=== PATIENT | male | born 1950 | race Caucasian/White ===

== ENCOUNTER 2017-09-30 22:14 | Emergency (ER) | payer OTHER ==
[~2017-09-30] VITALS: Ht 170.2 cm; Wt 86.2 kg
[~2017-09-30 22:14] MED LIST: ASPI-231 PO; ATEN100T53; CLOP75TA28 PO; LEVO50TA7 PO; LISI-646 PO; LISI-713; MECL12.554 PO; METO50TA7 PO; SIMV-8 PO; SPIR25TA89 PO
[2017-09-30 22:27] VITALS: BP 160/70
[2017-09-30] MEDS ORDERED: HYDROcodone-ACET 10/325MG TAB PO ONE (23:30)
[2017-09-30] MEDS ORDERED: TETANUS-DIPTH-ACEL PERTUSSIS 0.5ML SYRG IM ONE (23:30)
[2017-09-30] MEDS ORDERED: LIDOCAINE 1% HCL (LOCAL ANESTH.) INJ 20ML MDV ONE (23:42)
[2017-10-01] MEDS ORDERED: LIDOCAINE 1% HCL (LOCAL ANESTH.) INJ 20ML MDV ONE (00:33)
[2017-10-01] MEDS ORDERED: LIDOCAINE W/ EPINEPHRINE 1% 20ML VIAL SC ONE (00:45)
[2017-10-01] MEDS ORDERED: BACITRACIN TOP OINT 1 UD PKG TOP ONE (01:00)
== END 2017-10-01 03:07 | disposition home or self-care (01) ==
LOC: EDBD 22:14 → ER 22:14
DX: S81.812A Laceration without foreign body, left lower leg, initial encounter (principal); I25.10 Atherosclerotic heart disease of native coronary artery without angina pectoris; I10 Essential (primary) hypertension; I25.2 Old myocardial infarction; Z79.82 Long term (current) use of aspirin; Z86.73 Personal history of transient ischemic attack (TIA), and cerebral infarction without residual deficits; W54.0XXA Bitten by dog, initial encounter; Y93.89 Activity, other specified; Y92.89 Other specified places as the place of occurrence of the external cause; Y99.8 Other external cause status
CPT/HCPCS: 13121; 13122; 73590; 90471; 90715; 99285; J2001

== ENCOUNTER 2017-10-14 08:40 | Emergency (ER) | payer OTHER ==
[~2017-10-14] VITALS: Ht 170.2 cm; Wt 86.2 kg
[2017-10-14 09:03] VITALS: BP 121/83
== END 2017-10-14 10:37 | disposition home or self-care (01) ==
LOC: ER 08:40
DX: S81.812D Laceration without foreign body, left lower leg, subsequent encounter (principal); X58.XXXD Exposure to other specified factors, subsequent encounter; I25.10 Atherosclerotic heart disease of native coronary artery without angina pectoris; I10 Essential (primary) hypertension; I25.2 Old myocardial infarction; Z86.73 Personal history of transient ischemic attack (TIA), and cerebral infarction without residual deficits

== ENCOUNTER 2020-08-10 12:14 | Emergency (ER) | payer OTHER ==
[~2020-08-10] VITALS: Ht 170.2 cm; Wt 86.2 kg
[~2020-08-10 12:14] MED LIST changes: -ATEN100T53; +HYDR-4833 PO; -LISI-713; -MECL12.554 PO; +METO-6 PO; -METO50TA7 PO; -SPIR25TA89 PO
[2020-08-10 12:21] VITALS: BP 115/75
[2020-08-10] MEDS ORDERED: KETOROLAC TROMETH 30 MG/ML 1ML VIAL IM ONE (14:30)
[2020-08-10] MEDS ORDERED: methylPREDNISolone SOD SUCC 125 MG/2 ML VL IM ONE (14:30)
[2020-08-10 15:23] LABS: Basophils # (auto) 0.1 10 ^3/uL (0-0.2); Basophils % (auto) 0.4 % (0.0-2.0); Eosinophils # (auto) 0.1 10 ^3/uL (0-0.8); Eosinophils % (auto) 0.8 % (0.0-7.0); Hematocrit 45.7 % (41.0-53.0); Hemoglobin 15.5 g/dL (13.5-17.5); Lymphocytes # (auto) 1.3 10 ^3/uL (0.4-5.4); Lymphocytes % (auto) 10.5 % (10.0-50.0); Mean Corpuscular Hemoglobin 30.3 pg (28.0-32.0); Mean Corpuscular Hgb Conc. 33.9 g/dL (32.0-36.0); Mean Corpuscular Volume 89.4 fL (80.0-100.0); Monocytes # (auto) 1.2 10 ^3/uL (0-1.3); Monocytes % (auto) 9.1 % (0.0-12.0); Neutrophils # (auto) 10.1 10 ^3/uL (1.6-8.6); Neutrophils % (auto) 79.2 % (37.0-80.0); Nucleated Red Blood Cells % 0.1 %; Platelet Count (auto) 321 10^3/uL (140-450); Red Blood Cells 5.12 10^6/uL (4.5-5.90); Red Cell Distribution Width 13.4 % (11.8-14.3); White Blood Cell 12.7 10^3/uL (4.4-10.8)
[2020-08-10 15:33] LABS: Potassium 4.5 mmol/L (3.5-5.1)
[2020-08-10 15:35] LABS: BUN/Creatinine Ratio 16.5; Uric Acid 8.1 mg/dL (3.5-7.2)
== END 2020-08-10 16:18 | disposition home or self-care (01) ==
LOC: ER 12:14
DX: M10.9 Gout, unspecified (principal); E78.5 Hyperlipidemia, unspecified; I11.0 Hypertensive heart disease with heart failure; I50.9 Heart failure, unspecified; I25.10 Atherosclerotic heart disease of native coronary artery without angina pectoris
CPT/HCPCS: 36415; 80048; 84550; 85025; 96372; 99283; J1885; J2930

== ENCOUNTER 2022-08-06 19:30 | Inpatient (IN) | payer OTHER ==
[~2022-08-06] VITALS: Ht 182.9 cm; Wt 89.9 kg
[~2022-08-06 19:30] MED LIST changes: -ASPI-231 PO; +ASPI1TAB20 PO; -LISI-646 PO; +LISI20TA28 PO
[2022-08-06 20:43] LABS: Basophils # (auto) 0 10 ^3/uL (0-0.2); Basophils % (auto) 0.5 % (0.0-2.0); Eosinophils # (auto) 0 10 ^3/uL (0-0.8); Eosinophils % (auto) 0.5 % (0.0-7.0); Hematocrit 47.2 % (41.0-53.0); Lymphocytes # (auto) 0.4 10 ^3/uL (0.4-5.4); Lymphocytes % (auto) 5.5 % (10.0-50.0); Mean Corpuscular Hemoglobin 29.6 pg (28.0-32.0); Mean Corpuscular Hgb Conc. 33.8 g/dL (32.0-36.0); Mean Corpuscular Volume 87.4 fL (80.0-100.0); Monocytes # (auto) 0.9 10 ^3/uL (0-1.3); Monocytes % (auto) 11.9 % (0.0-12.0); Neutrophils # (auto) 5.8 10 ^3/uL (1.6-8.6); Neutrophils % (auto) 81.6 % (37.0-80.0); Nucleated Red Blood Cells % 0.1 %; Red Cell Distribution Width 13.6 % (11.8-14.3); White Blood Cell 7.2 10^3/uL (4.4-10.8)
[2022-08-06 21:10] LABS: INR 1.2 (0.9-1.15); Partial Thromboplastin Time 30.6 sec (24.6-33.4)
[2022-08-06 21:13] LABS: Albumin 3.8 g/dL (3.4-5.0); BUN/Creatinine Ratio 10.5; Bilirubin, Total 0.7 mg/dL (0.2-1.0); Calcium 9.3 mg/dL (8.5-10.1); Potassium 3.8 mmol/L (3.5-5.1); Total Protein 7.5 g/dL (6.4-8.2)
[2022-08-06] MEDS ORDERED: ACETAMINOPHEN 500 MG TAB PO ONE (21:15)
[2022-08-06 22:04] LABS: Urine Bacteria NONE SEEN /hpf (None Seen); Urine Blood TRACE /uL (Negative); Urine Specific Gravity 1.023 (1.001-1.035); Urine WBC 1 /hpf (0 - 3)
[2022-08-06 22:22] LABS: Alcohol, Urine < 3.0 mg/dL (0-10); Amphetamine Screen, Urine NEGATIVE (NEGATIVE); Barbiturate Scree,Urine NEGATIVE (NEGATIVE); Benzodiazephine Screen, Urine NEGATIVE (NEGATIVE); Cannabinoid Screen, Urine NEGATIVE (NEGATIVE); Cocaine Screen, Urine NEGATIVE (NEGATIVE); Opiate Scree,Urine NEGATIVE (NEGATIVE); Phencyclidine Screen, Urine NEGATIVE (NEGATIVE)
[2022-08-07] MEDS ORDERED: AZITHROMYCIN 500MG/ 250ML 250 ML IV ONE (01:45)
[2022-08-07] MEDS ORDERED: MORPHINE SULFATE INJ 2 MG/ml SYRG IV PRN (12:00)
[2022-08-07] MEDS ORDERED: DEXTROSE (50%) 50ML SYRG IV PRN (12:00)
[2022-08-07] MEDS ORDERED: NITROGLYCERIN 0.4 MG SL TAB SL PRN (12:00)
[2022-08-07 13:10] LABS: Magnesium 2.1 mg/dL (1.6-2.6)
[2022-08-07 13:12] LABS: Phosphorus 2.8 mg/dL (2.5-4.90)
[2022-08-07] MEDS: InsuLIN REG 1unit/0.01ml Soln (100units/ml) SC SCH ×2 (13:12→18:00)
[2022-08-07] MEDS: ACCU-CHEK COMFORT CURVE STRIP VI SCH ×2 (13:13→18:11)
[2022-08-07 17:10] VITALS: BP 143/87
[2022-08-07] MEDS ORDERED: hydrALAZINE HCL 20 MG/ML VL IV PRN (17:15)
[2022-08-07] MEDS: SODIUM CHLORIDE 0.9% 1,000 ML IV SCH (17:15)
[2022-08-07] MEDS ORDERED: IOHEXOL 350 MG/ML 100ML IJ ONE (17:17)
[2022-08-07 18:02] LABS: Basophils # (auto) 0 10 ^3/uL (0-0.2); Basophils % (auto) 0.9 % (0.0-2.0); Eosinophils # (auto) 0 10 ^3/uL (0-0.8); Eosinophils % (auto) 0.6 % (0.0-7.0); Hematocrit 49.3 % (41.0-53.0); Hemoglobin 16.7 g/dL (13.5-17.5); Lymphocytes # (auto) 1.4 10 ^3/uL (0.4-5.4); Lymphocytes % (auto) 27.9 % (10.0-50.0); Mean Corpuscular Hemoglobin 29.8 pg (28.0-32.0); Mean Corpuscular Hgb Conc. 33.8 g/dL (32.0-36.0); Mean Corpuscular Volume 88.1 fL (80.0-100.0); Monocytes # (auto) 0.8 10 ^3/uL (0-1.3); Monocytes % (auto) 16.6 % (0.0-12.0); Neutrophils # (auto) 2.7 10 ^3/uL (1.6-8.6); Nucleated Red Blood Cells % 0.5 %; Red Cell Distribution Width 13.6 % (11.8-14.3)
[2022-08-07 18:19] LABS: BUN/Creatinine Ratio 13.3; Calcium 9.4 mg/dL (8.5-10.1); Potassium 3.7 mmol/L (3.5-5.1)
[2022-08-07] MEDS: ATORVASTATIN 20 MG TAB PO SCH (21:36)
[2022-08-07 22:00] VITALS: BP 128/65
[2022-08-08] MEDS: ACCU-CHEK COMFORT CURVE STRIP VI SCH ×4 (00:51→16:37)
[2022-08-08] MEDS ORDERED: SPIR25TA8 PO (02:19)
[2022-08-08 05:00] VITALS: BP 128/78
[2022-08-08 05:07] LABS: RPR Non Reactive (Non Reactive)
[2022-08-08] MEDS: InsuLIN REG 1unit/0.01ml Soln (100units/ml) SC SCH ×4 (05:08→16:37)
[2022-08-08] MEDS: SODIUM CHLORIDE 0.9% 1,000 ML IV SCH (05:08)
[2022-08-08 05:23] LABS: Basophils # (auto) 0.1 10 ^3/uL (0-0.2); Basophils % (auto) 1.3 % (0.0-2.0); Eosinophils # (auto) 0.1 10 ^3/uL (0-0.8); Eosinophils % (auto) 2.5 % (0.0-7.0); Hemoglobin 16.5 g/dL (13.5-17.5); Lymphocytes # (auto) 1.6 10 ^3/uL (0.4-5.4); Lymphocytes % (auto) 39.3 % (10.0-50.0); Mean Corpuscular Hemoglobin 29.6 pg (28.0-32.0); Mean Corpuscular Hgb Conc. 33.7 g/dL (32.0-36.0); Mean Corpuscular Volume 87.7 fL (80.0-100.0); Monocytes # (auto) 0.6 10 ^3/uL (0-1.3); Monocytes % (auto) 14.7 % (0.0-12.0); Neutrophils # (auto) 1.7 10 ^3/uL (1.6-8.6); Neutrophils % (auto) 42.2 % (37.0-80.0); Nucleated Red Blood Cells % 0.2 %; Red Blood Cells 5.58 10^6/uL (4.5-5.90); Red Cell Distribution Width 13.9 % (11.8-14.3); White Blood Cell 4.1 10^3/uL (4.4-10.8)
[2022-08-08 05:25] LABS: Potassium 3.8 mmol/L (3.5-5.1)
[2022-08-08 05:27] LABS: BUN/Creatinine Ratio 16.7; Calcium 9.5 mg/dL (8.5-10.1)
[2022-08-08 09:00] VITALS: BP 122/75
[2022-08-08] MEDS ORDERED: LISINOPRIL 20 MG TAB PO SCH (10:00)
[2022-08-08] MEDS ORDERED: CLOPIDOGREL BISULFATE 75 MG TAB PO SCH (10:00)
[2022-08-08] MEDS ORDERED: LEVOTHYROXINE SODIUM 50 MCG TAB PO SCH (10:00)
[2022-08-08] MEDS ORDERED: ASPirin 81 mg TAB PO SCH (10:00)
[2022-08-08] MEDS ORDERED: METOPROLOL SUCCINATE XL 50 MG TAB PO SCH (10:00)
[2022-08-08 12:30] VITALS: BP 134/97
[2022-08-08 13:00] VITALS: BP 122/75
[2022-08-08 17:00] VITALS: BP 157/85
[2022-08-08] MEDS ORDERED: DOX100T PO (17:26)
[2022-08-08] MEDS: DOXYCYCLINE 100 MG TAB/CAP PO SCH ×2 (18:11→21:14)
[2022-08-08 19:35] VITALS: BP 122/75
[2022-08-08] MEDS: ATORVASTATIN 20 MG TAB PO SCH (21:14)
== END 2022-08-08 21:15 | disposition home or self-care (01) | DRG 177 ==
LOC: EDBD 19:30 → ER 19:31 → TELE 08-07 11:54 → TELE-CENTR 08-07 16:28
PROVIDERS: ADMIT Nurse Practitioner Family; ATTEND Internal Medicine
DX: U07.1 COVID-19 (principal); G92.9 Unspecified toxic encephalopathy; J98.11 Atelectasis; E03.9 Hypothyroidism, unspecified; E11.9 Type 2 diabetes mellitus without complications; E78.5 Hyperlipidemia, unspecified; Z20.822 Contact with and (suspected) exposure to COVID-19; I11.0 Hypertensive heart disease with heart failure; I25.10 Atherosclerotic heart disease of native coronary artery without angina pectoris; I25.5 Ischemic cardiomyopathy; I48.91 Unspecified atrial fibrillation; I50.9 Heart failure, unspecified; Z79.82 Long term (current) use of aspirin; I25.2 Old myocardial infarction; Z82.0 Family history of epilepsy and other diseases of the nervous system; Z82.3 Family history of stroke; Z86.73 Personal history of transient ischemic attack (TIA), and cerebral infarction without residual deficits; Z95.810 Presence of automatic (implantable) cardiac defibrillator; Z88.0 Allergy status to penicillin; R53.81 Other malaise; Z79.84 Long term (current) use of oral hypoglycemic drugs
CPT/HCPCS: 36415; 70450; 71045; 71275; 80048; 80053; 80307; 80320; 81001; 82010; 82140; 82962; 83036; 83735; 83880; 84100; 84439; 84443; 84481; 84484; 85025; 85379; 85610; 85730; 86592; 87040; 87426; 87804; 92610; 93005; 93306; 93886; 93970; 96365; 97163; 99291; G0378

== ENCOUNTER 2025-02-20 21:29 | Inpatient (IN) | payer OTHER ==
[~2025-02-20] VITALS: Ht 170.2 cm; Wt 87.0 kg
[~2025-02-20 21:29] MED LIST changes: +DOX100T PO; -LISI20TA28 PO; +LISI20TA56 PO; -SIMV-8 PO; +SIMV20TA20 PO; +SPIR25TA8 PO
[2025-02-20 22:09] VITALS: PULSE 80; RESP 19; O2SAT 91
[2025-02-20] MEDS: methylPREDNISolone SOD SUCC 125 MG/2 ML VL IV ONE (22:22)
[2025-02-20] MEDS: ALBUTEROL SULF 2.5 MG/0.5ML(0.5%) NEB SOLN NEB ONE (22:37)
[2025-02-20] MEDS: IPRATROPIUM BROM 0.5 MG/2.5ML INH SOL NEB ONE (22:37)
--- NOTE | 2025-02-20 22:49 | ED.PDOC ---
History of Present Illness HPI Comments 74 y/o M is BIBA for 1x day history of throat pain and shortness of breath. Patient reports on gradual onset of symptoms, that began, initially, with throat pain. Patient has a history of angina, CAD, CHF, CVA, DM, HLD, HTN, AL s/p PTCA and pacemaker, thyroid, TIA. He states on his grandson being sick, currently, with same throat pain symptom. Patient denies having any chest pain, cough, congestion, fever, chills, or further associated symptoms. Per EMS report, patient was found with low O2 saturation on scene and was placed on oxygen en route. Chief Complaint: Shortness of Breath Comments 74-year-old male with history of hypertension, dyslipidemia, CHF, CVA, AL status post PTCA and pacemaker insertion for bradycardia, brought in by EMS from home complaining of shortness of breath. Patient states he developed a sore throat yesterday, then today awakened with cough and difficulty breathing. He reports his grandson as a sick contact with similar symptoms. He denies any fever, chest pain, nausea, vomiting, diaphoresis or edema. Time Seen by MD: 22:15 Primary Care Provider: NATALY Reviewed Notes: Nurses Notes, Sports Team Marketing Intern Notes, Medications, Allergies Allergies: Coded Allergies: Penicillins (Verified Allergy, Unknown, 08/10/20) Home Meds Active Scripts Doxycycline Monohydrate (Doxycycline Monohydrate) 100 Mg Tab, 100 MG PO Q12HR, #14 TAB Prov:MEG MENDOZA MD 08/08/22 Reported Medications Spironolactone (Spironolactone) 25 Mg Tab, 1 TAB PO DAILY, #90 TAB 1 Refill 08/08/22 Hydrocodone-Acetaminophen ([place] 5/325MG) 1 Tab Tb, 1 TAB PO Q6HP PRN, #12 04/11/18 Aspirin (Aspir-81) 81 Mg Tab, 1 TAB PO DAILY, #30 TAB 5 Refills 08/29/16 Levothyroxine Sodium (Levothyroxine Sodium) 50 Mcg Tab, 50 MCG PO, TAB 08/29/16 Metoprolol Succinate (Toprol Xl) 50 Mg Tab, 1 TAB PO DAILY, #30 TAB 5 Refills 08/29/16 Clopidogrel Bisulfate (Plavix) 75 Mg Tab, 75 MG PO, TAB 12/8/16 Simvastatin (Simvastatin) 20 Mg Tab, 20 MG PO DAILY for 30 Days 08/29/16 Lisinopril (Lisinopril) 20 Mg Tab, 20 MG PO DAILY for 30 Days, MG 08/29/16 Information Source: Patient Mode of Arrival: EMS Severity: Moderate Timing: Days Duration: Since onset Prehospital treatment: 12 Lead EKG, Accucheck, Alteration Manager, Oxygen Past Medical History PAST MEDICAL HISTORY: Angina, CAD, CHF, CVA, High Lipids, HTN, AL, Thyroid, TIA Surgical History: Pacemaker, PTCA Family History Family History: No family hx of Heart sohan, No family hx of HTN Social History Smoker: Non-Smoker Alcohol: Denies ETOH Use Drugs: Denies Drug Use Lives In: Home All Other Systems: Reviewed and Negative (Comprehensive systems review obtained and negative except for what is stated in the HPI.) Physical Exam General Appearance: No Apparent Distress HEENT: Other (Pupils and face symmetric. Moist mucous membranes. Mild pharyngeal and tonsillar erythema and edema. No exudate or uvular deviation.) Neck: Full Range of Motion, Normal Inspection Respiratory: Crackles, Decreased Breath Sounds, No Accessory Muscle Use, No Respiratory Distress, Rales Cardiovascular: No Edema, No JVD, Regular Rate/Rhythm Breast Exam: Deferred Gastrointestinal: Non Tender, Soft Genitalia: Deferred Pelvic: Deferred Rectal: Deferred Extremities: Normal inspection, Normal range of motion, Non-tender, No pedal edema Neurologic: Alert (Oriented x4), Normal Affect, Normal Mood, Other (Moves all extremities. Light touch sensation grossly intact all extremities.) Cerebellar Function: NOT DONE Reflexes: NOT DONE Skin: Dry, Normal Color, Rash (Scattered patchy erythematous rash on lower extremities), Warm Lymphatic: NOT DONE Was a procedure done? Was a procedure done?: No EKG EKG : Comments Sinus rhythm, rate 85, normal IA interval, QRS prolonged at 137, QTC prolonged at 475, left axis deviation, old inferior infarct, lateral T-wave inversion, occ asional PVCs Differential Dx Considerations may include: CHF, bronchitis, asthma/COPD, pneumonia, sepsis, viral syndrome, arrhythmia, AL, among others X-Ray, Labs, Meds, VS Vital Signs Date Time Temp Pulse Resp B/P (MAP) Pulse Ox O2 Delivery O2 Flow Rate FiO2 02/21/25 01:00 73 19 137/72 (93) 94 02/21/25 00:00 73 18 132/79 (96) 02/20/25 23:00 80 17 127/75 (92) 02/20/25 22:33 18 94 Nasal Cannula* 4 36 02/20/25 22:09 80 19 91 Room Air* 0 21 02/20/25 22:08 98.8 80 19 137/80 (99) 91 98.8 02/20/25 21:40 85 02/20/25 21:29 98.5 77 20 151/98 (115) 95 98.5 Lab Test 02/21/25 00:29 02/20/25 23:44 02/20/25 22:39 02/20/25 22:31 Range/Units Lactic Acid Level 3.0 *H 2.8 *H 0.4-2.0 mmol/L Troponin I High Sensitivity 12 11 </=54 ng/L White Blood Count 12.8 H 4.4-10.8 10^3/uL Red Blood Count 5.30 4.5-5.90 10^6/uL Hemoglobin 15.9 13.5-17.5 g/dL Hematocrit 47.6 41.0-53.0 % Mean Corpuscular Volume 89.9 80.0-100.0 fL Mean Corpuscular Hemoglobin 30.1 28.0-32.0 pg Mean Corpuscular Hemoglobin Concent 33.4 32.0-36.0 g/dL Red Cell Distribution Width 14.2 11.8-14.3 % Platelet Count 240 140-450 10^3/uL Mean Platelet Volume 8.0 6.9-10.8 fL Neutrophils (%) (Auto) 85.2 H 37.0-80.0 % Lymphocytes (%) (Auto) 8.7 L 10.0-50.0 % Monocytes (%) (Auto) 4.9 0.0-12.0 % Eosinophils (%) (Auto) 0.9 0.0-7.0 % Basophils (%) (Auto) 0.3 0.0-2.0 % Neutrophils # (Auto) 10.9 H 1.6-8.6 10 ^3/uL Lymphocytes # (Auto) 1.1 0.4-5.4 10 ^3/uL Monocytes # (Auto) 0.6 0-1.3 10 ^3/uL Eosinophils # (Auto) 0.1 0-0.8 10 ^3/uL Basophils # (Auto) 0 0-0.2 10 ^3/uL Nucleated Red Blood Cells 0.1 % D-Dimer, Quantitative 0.52 H 0.0-0.49 mg/L FEU Sodium Level 140 136-145 mmol/L Potassium Level 4.0 3.5-5.1 mmol/L Chloride Level 107 98-107 mmol/L Carbon Dioxide Level 23 20-31 mmol/L Anion Gap 10 5-15 Blood Urea Nitrogen 13 9-23 mg/dL Creatinine 0.92 0.700-1.30 mg/dL Glomerular Filtration Rate Calc 87 >90 mL/min BUN/Creatinine Ratio 14.1 10.0-20.0 Serum Glucose 138 H 74-106 mg/dL Calcium Level 9.6 8.7-10.4 mg/dL B-Type Natriuretic Peptide 404.55 0-100 pg/mL Influenza Type A Antigen Negative Negative Influenza Type B Antigen Negative Negative SARS-CoV-2 Antigen (Rapid) Negative NEGATIVE Current Medications Medications (Trade) Dose Ordered Sig/Eric Route Start Time Stop Time Status Last Admin Methylprednisolone Sodium Succinate (Solu Medrol) 125 mg ONCE ONCE IV 02/20/25 22:30 02/20/25 22:31 DC 02/20/25 22:22 Vancomycin HCl 200 ml @ 200 mls/hr ONCE ONCE IV 02/21/25 01:00 02/21/25 01:59 DC 02/21/25 01:21 Cefepime HCl 50 ml @ 12.5 mls/hr ONCE ONCE IV 02/21/25 01:45 02/21/25 05:44 02/21/25 02:55 Sodium Chloride 250 ml @ 250 mls/hr Q1H ONCE IV 02/21/25 02:30 02/21/25 03:29 02/21/25 02:[address] [address] Ph: [phone] DIAGNOSTIC IMAGING Diagnostic Imaging Report : [id number] Signed PATIENT: REHAN DE LEON ACCT: [id number] UNIT: [id number] : 1950 LOC: ER ROOM / BED: / AGE / SEX: 74 / M ADM STATUS: REG ER SERVICE [id number] ORDERING PHYSICIAN: CARLOS ENRIQUE SUTTON MD PROCEDURE(s): CXRP - CHEST PORTABLE REASON: sob ORDER NUMBER(s): [id number], ACCESSION NUMBER(s): [id number] CHEST RADIOGRAPH Indication: sob Technique: Single frontal view of the chest was obtained COMPARISON: CHEST PORTABLE on DOS: 08/06/22, CXRP on DOS: 08/06/22, EKG on DOS: 08/06/22 FINDINGS: Lines and Tubes: None. Left anterior chest wall dual lead cardiac pacing device noted. Lungs: Clear Pleura: No effusion. No pneumothorax. Cardiomediastinal contours: Unremarkable Bones: Unremarkable IMPRESSION: 1. No acute disease. ATED BY: TRENT RAM MD DICTATED DATE/TIME: 02/20/252314 SIGNED BY: TRENT RAM MD SIGNED DATE/TIME: 02/20/252314 CC: X-Ray, Labs, Meds, VS Comment 74-year-old male with a history of hypertension, CHF, CAD, mi, dyslipidemia and CVA presenting with URI symptoms and shortness of breath Vitals remarkable for oxygen saturation 91% on room air-hypoxic Exam remarkable for pharyngeal erythema and edema, diminished breath sounds and scattered rales Rhythm strip independently interpreted by me: Sinus rhythm, rate 85, occasional PVCs Chest x-ray IMPRESSION: 1. No acute disease. CBC remarkable for WBC 12.8, metabolic panel unremarkable, two serial troponins negative, BNP 404.55, influenza and COVID negative, lactate 2.8, 3.0 on repeat Patient treated with the following in the ED: Albuterol 5 mg/Ativan 0.5 mg nebulized, Solu-Medrol 125 mg IV, cefepime 1 g IV, vancomycin 1 g IV, Lasix 40 mg IV On re-evaluation, patient is not in respiratory distress and saturating 94% on 4 L nasal cannula. Other vitals are stable. Plan is to admit the patient for diuresis, IV antibiotics and respiratory support as needed. 30 cc/kilogram sepsis fluid bolus was not administered due to the patient's history of CHF and rales on exam. Aggressive fluid administration could cause harm. Case discussed with BENI Vanegas, who will admit the patient. Time of 1ST Reevaluation: 22:45 Reevaluation 1ST: Unchanged Time of 2ND Reevaluation: 23:45 Reevaluation 2ND: Improved Patient Education/Counseling: Diagnosis, Treatment, Other (need for admission ) Family Education/Counseling: No Family Present Sepsis Sepsis Reasesment Focused Exam Sepsis focused exam: focus exam completed, time: (2344) Orders: Laboratory Tests 02/20/25 22:39: Lactic Acid Level 2.8 02/21/25 00:29: Lactic Acid Level 3.0 Sepsis Date: Feb 21, 2025 Time recognized/suspected: 00:30 Recent Procedure: No On Antibiotic Therapy: No Respiratory Rate >20: No Heart Rate >90: No Temp<36 C (96.8 F) or >38.3 C: No SBP <90 or MAP <65 mmHG: No New Acute Mental Status Change: No Is the patient on CPAP, BIPAP,: No IV fluid given: No Departure 1 Departure Time of Disposition: 23:45 Impression: Primary Impression: Pharyngitis Qualified Codes: J02.9 - Acute pharyngitis, unspecified Additional Impressions: Bronchitis Acute respiratory failure Qualified Codes: J96.01 - Acute respiratory failure with hypoxia CHF exacerbation Qualified Codes: I50.9 - Heart failure, unspecified Sepsis Qualified Codes: A41.9 - Sepsis, unspecified organism Disposition: 09 ADMITTED INPATIENT Admit to: Tele Condition: Guarded Critical Care Note Critical Care Time?: Yes (45 min-critical care time only) Critical care comment: Critical care time including multiple bedside re-evaluations, review of lab and imaging studies, and discussion of the case with the admitting provider. Patient is high-risk for respiratory and/or hemodynamic decompensation. Stability Stability form required: No Heart Score Heart Score: Heart Score Response (Comments) Value History N/A 0 EKG N/A 0 Age N/A 0 Risk Factors N/A 0 Troponin N/A 0 Total 0 I personally scribed for CARLOS ENRIQUE SUTTON MD ([email or web address]) on 02/20/25 at 22:48. Electronically submitted by Stanley Yanes ([email or web address]). I personally scribed for CARLOS ENRIQUE SUTTON MD ([email or web address]) on 02/20/25 at 23:23. Electronically submitted by Stanley Yanes ([email or web address]). I personally scribed for CARLOS ENRIQUE SUTTON MD ([email or web address]) on 02/21/25 at 00:05. Electronically submitted by Stanley Yanes ([email or web address]). CARLOS ENRIQUE SUTTON MD Feb 20, 2025 22:48
[2025-02-20 23:06] LABS: Basophils # (auto) 0 10 ^3/uL (0-0.2); Basophils % (auto) 0.3 % (0.0-2.0); Eosinophils # (auto) 0.1 10 ^3/uL (0-0.8); Eosinophils % (auto) 0.9 % (0.0-7.0); Hematocrit 47.6 % (41.0-53.0); Hemoglobin 15.9 g/dL (13.5-17.5); Lymphocytes # (auto) 1.1 10 ^3/uL (0.4-5.4); Lymphocytes % (auto) 8.7 % (10.0-50.0); Mean Corpuscular Hemoglobin 30.1 pg (28.0-32.0); Mean Corpuscular Hgb Conc. 33.4 g/dL (32.0-36.0); Mean Corpuscular Volume 89.9 fL (80.0-100.0); Monocytes # (auto) 0.6 10 ^3/uL (0-1.3); Monocytes % (auto) 4.9 % (0.0-12.0); Neutrophils # (auto) 10.9 10 ^3/uL (1.6-8.6); Neutrophils % (auto) 85.2 % (37.0-80.0); Nucleated Red Blood Cells % 0.1 %; Platelet Count (auto) 240 10^3/uL (140-450); Red Cell Distribution Width 14.2 % (11.8-14.3); White Blood Cell 12.8 10^3/uL (4.4-10.8)
[2025-02-20 23:13] LABS: Anion Gap 10 (5-15); Carbon Dioxide 23 mmol/L (20-31); Chloride 107 mmol/L (98-107); Sodium 140 mmol/L (136-145)
[2025-02-20 23:14] LABS: Calcium 9.6 mg/dL (8.7-10.4)
[2025-02-20 23:15] LABS: COVID19 ANTIGEN SOFIA FIA NEGATIVE (NEGATIVE)
[2025-02-20 23:16] LABS: Rapid Influenza A Negative (Negative); Rapid Influenza B Negative (Negative)
--- NOTE | 2025-02-20 23:17 | DVH ---
CHEST RADIOGRAPH Indication: sob Technique: Single frontal view of the chest was obtained COMPARISON: CHEST PORTABLE on DOS: 08/06/22, CXRP on DOS: 08/06/22, EKG on DOS: 08/06/22 FINDINGS: Lines and Tubes: None. Left anterior chest wall dual lead cardiac pacing device noted. Lungs: Clear Pleura: No effusion. No pneumothorax. Cardiomediastinal contours: Unremarkable Bones: Unremarkable IMPRESSION: 1. No acute disease.
[2025-02-20 23:19] LABS: BUN/Creatinine Ratio 14.1 (10.0-20.0); Blood Urea Nitrogen 13 mg/dL (9-23)
[2025-02-20 23:21] LABS: Glucose 138 mg/dL (74-106)
[2025-02-20 23:25] LABS: Lactic Acid w/Reflex 2.8 mmol/L (0.4-2.0)
[2025-02-21] VITALS (13 sets, daily range): BP systolic 125–154; BP diastolic 65–86; PULSE 58–87; RESP 16–19; TEMP 97.3–98.5; O2SAT 92–97
[2025-02-21] MEDS ORDERED: PIPERACILLIN-TAZO 4.5GM 100 ML IV ONE (01:00)
[2025-02-21] MEDS: VANCOMYCIN 1GM/200ML PM 200 ML IV ONE (01:21)
[2025-02-21] MEDS ORDERED: IPRATROPIUM BROM 0.5 MG/2.5ML INH SOL NEB PRN (02:30)
[2025-02-21] MEDS ORDERED: ONDANSETRON HCL 4 MG/2 ML VIAL IV PRN (02:30)
[2025-02-21] MEDS ORDERED: ACETAMINOPHEN 325 MG TAB PO PRN (02:30)
[2025-02-21] MEDS ORDERED: MORPHINE SULFATE INJ 2 MG/ml SYRG IV PRN (02:45)
[2025-02-21] MEDS ORDERED: NITROGLYCERIN 0.4 MG SL TAB SL PRN (02:45)
[2025-02-21] MEDS: CEFEPIME 1GM/ 50ML 50 ML IV ONE (02:55)
[2025-02-21] MEDS: SODIUM CHLORIDE 0.9% 250 ML IV ONE (02:55)
--- NOTE | 2025-02-21 02:56 | DVHHP2 ---
Admitting Diagnosis: acute respiratory failure, acute chf exacerbation History of Present Illness History Source: Patient Exam Limitations: No limitations HPI Mr. Kolton Rivero is a 74 year old male with a history of angina, CAD, CHF, CVA, DM, HLD, HTN, NM s/p PTCA and pacemaker, thyroid TIA who presents with a chief complaint of throat pain and shortness of breath. Patient reports on gradual onset of symptoms, that began, initially, with throat pain. Patient reports dyspnea at rest denies chest pain, dizziness, fevers, chills. Patient with a d dimer of 0.52, BNP 404, lactate levels 2.8, 3.0. Chest x ray per radiologists with no acute disease. Patient denies any home oxygen use. Patient admitted for further evaluation and treatment. Home Meds Active Scripts Doxycycline Monohydrate (Doxycycline Monohydrate) 100 Mg Tab, 100 MG PO Q12HR, #14 TAB Prov:MEG MENDOZA MD 08/08/22 Reported Medications Spironolactone (Spironolactone) 25 Mg Tab, 1 TAB PO DAILY, #90 TAB 1 Refill 08/08/22 Hydrocodone-Acetaminophen ([place] 5/325MG) 1 Tab Tb, 1 TAB PO Q6HP PRN, #12 04/11/18 Aspirin (Aspir-81) 81 Mg Tab, 1 TAB PO DAILY, #30 TAB 5 Refills 08/29/16 Levothyroxine Sodium (Levothyroxine Sodium) 50 Mcg Tab, 50 MCG PO, TAB 08/29/16 Metoprolol Succinate (Toprol Xl) 50 Mg Tab, 1 TAB PO DAILY, #30 TAB 5 Refills 08/29/16 Clopidogrel Bisulfate (Plavix) 75 Mg Tab, 75 MG PO, TAB 08/29/16 Simvastatin (Simvastatin) 20 Mg Tab, 20 MG PO DAILY for 30 Days 08/29/16 Lisinopril (Lisinopril) 20 Mg Tab, 20 MG PO DAILY for 30 Days, MG 08/29/16 Past Medical History Cardiac: CAD, CHF, HTN, NM, Hyperlipidemia Pulmonary: No pertinent Hx Central Nervous System: CVA, TIA GI: No pertinent Hx Hemotology/Oncology: No pertinent Hx Hepatobiliary: No pertinent Hx Psychiatric: No pertinent Hx Musculoskeletal: No pertinent Hx Rheumotologic: No pertinent Hx Infectious Disease: No peritnent Hx ENT: No pertinent Hx Renal/: No pertinent Hx Endocrine: No pertinent Hx Dermatology: No pertinent Hx Past Surgical History: Pacemaker, PTCA Patient Family History: Cancer G8 FATHER Seizure disorder (situation) G8 SISTER Stroke G8 MOTHER Sturge-Lewis syndrome G8 SISTER Smoker: No Hx (Negative) Alocohol: None Drugs: None Lives with: With family Domestic Violence: Neg Review of Systems Constitutional: No symptom reported Ears, Nose, & Throat: No symptom reported Eyes: No symptom reported Pulmonary/Respiratory: Dyspnea, Other (thorat pain) Cardiovascular: No symptom reported Gastrointestinal: No symptom reported Genitourinary: No symptom reported Musculoskeletal: No symptom reported Skin: No symptom reported Psychiatric: No symptom reported Endocrine: No symptom reported Hemotologic/Lymphatic: No symptom reported H&P Exam Vital Signs Vital Signs Date Time Temp Pulse Resp B/P (MAP) Pulse Ox O2 Delivery O2 Flow Rate FiO2 02/21/25 01:00 73 19 137/72 (93) 94 02/20/25 22:33 Nasal Cannula* 4 36 02/20/25 22:08 98.8 98.8 General Appeara: Well developed, Well nourished, Normal Appearance Head Exam: Normal inspection Neck Exam: Normal inspection, Non-tender, Normal alignment Eye Exam: bilateral eye Normal inspection, bilateral eye PERRL, bilateral eye Abnormal EOM Ear Exam: bilateral ear Auricle normal Nasal Exam: Normal inspection Mouth: Normal Inspection Pulmonary/Respiratory: Normal inspection, Normal breath sounds, Chest non- tender Cardiovascular/Chest: Normal inspection, Regular rate, Normal Rhythm Peripheral Pulses: 2+ dorsalis pedis (R), 2+ dorsalis pedis (L), 2+ Radial (R), 2+ Radial (L) Abdominal Exam: Normal bowel sounds, Soft Rectal Exam: Deferred Legs: bilateral leg non-tender, bilateral leg normal inspection, bilateral leg normal range of motion WATER RESOURCE SPECIALIST Exam: Normal hearing, Normal speech, PERRL Motor/Sensory: Normal sensory function, Normal motor function Neuro/Mental St: Alert, Oriented Appearance: Appropriate appearance, Appropriate insight, Other (poor historian) Eye contact/ Speech: Cooperative, Good eye contact, Normal speech Thoughts/Psych: Normal thought pattern Skin Exam: Normal inspection, Normal color, Warm/dry Wounds right leg scratch open, per patient from his dogs Labs/Xrays Labs Test 02/21/25 00:29 02/20/25 23:44 02/20/25 22:39 02/20/25 22:31 Range/Units Lactic Acid Level 3.0 *H 0.4-2.0 mmol/L Troponin I High Sensitivity 12 </=54 ng/L White Blood Count 12.8 H 4.4-10.8 10^3/uL Red Blood Count 5.30 4.5-5.90 10^6/uL Hemoglobin 15.9 13.5-17.5 g/dL Hematocrit 47.6 41.0-53.0 % Mean Corpuscular Volume 89.9 80.0-100.0 fL Mean Corpuscular Hemoglobin 30.1 28.0-32.0 pg Mean Corpuscular Hemoglobin Concent 33.4 32.0-36.0 g/dL Red Cell Distribution Width 14.2 11.8-14.3 % Platelet Count 240 140-450 10^3/uL Mean Platelet Volume 8.0 6.9-10.8 fL Neutrophils (%) (Auto) 85.2 H 37.0-80.0 % Lymphocytes (%) (Auto) 8.7 L 10.0-50.0 % Monocytes (%) (Auto) 4.9 0.0-12.0 % Eosinophils (%) (Auto) 0.9 0.0-7.0 % Basophils (%) (Auto) 0.3 0.0-2.0 % Neutrophils # (Auto) 10.9 H 1.6-8.6 10 ^3/uL Lymphocytes # (Auto) 1.1 0.4-5.4 10 ^3/uL Monocytes # (Auto) 0.6 0-1.3 10 ^3/uL Eosinophils # (Auto) 0.1 0-0.8 10 ^3/uL Basophils # (Auto) 0 0-0.2 10 ^3/uL Nucleated Red Blood Cells 0.1 % D-Dimer, Quantitative 0.52 H 0.0-0.49 mg/L FEU Sodium Level 140 136-145 mmol/L Potassium Level 4.0 3.5-5.1 mmol/L Chloride Level 107 98-107 mmol/L Carbon Dioxide Level 23 20-31 mmol/L Anion Gap 10 5-15 Blood Urea Nitrogen 13 9-23 mg/dL Creatinine 0.92 0.700-1.30 mg/dL Glomerular Filtration Rate Calc 87 >90 mL/min BUN/Creatinine Ratio 14.1 10.0-20.0 Serum Glucose 138 H 74-106 mg/dL Calcium Level 9.6 8.7-10.4 mg/dL B-Type Natriuretic Peptide 404.55 0-100 pg/mL Influenza Type A Antigen Negative Negative Influenza Type B Antigen Negative Negative SARS-CoV-2 Antigen (Rapid) Negative NEGATIVE Assessment/Plan Problem List: (1) CHF exacerbation (2) Acute respiratory failure (3) Hypoxia Plan This is a 74 yo male with known history of CAD, CHF, CVA, DM, HLD, HTN, NM with s/p PTCA, Hypothyroid, pacemaker placement who presents with shortness of breath, throat pain. Patient on 4L NC with 02 saturations 94-96% 1. Acute respiratory failure with hypoxia 2. CHF exacerbation 3. Elevated d dimer 4. Hypertension 5. DM 6. Hypothyroid plan: Admit telemetry Cardiology consultation, 2D echocardiogram Bronchodilators as needed Supplemental oxygen as needed keep 02 saturations above 92% Obtain CTA chest r/o PE Diuresis IV Furosemide Continue home medications when reconciled Discussed all above with patient who verbalizes agreement and understanding of care plan. All questions were answered. Patient's chart is reviewed and discussed with the nurse practitioner. Patient seen and evaluated by me today. I agree with the nurse practitioner's evaluation, documentation, assessment and care plan as outlined. Plan discussed with: Patient, Other Code Visit Code Visit Total Time (mins): 45 JOSEMANUEL MARTINEZ Feb 21, 2025 02:56 ANGELICA MEHTA MD Feb 21, 2025 13:57
[2025-02-21 02:57] LABS: Base Excess -4.7 mmol/L (-2.0-3.0)
[2025-02-21 03:09] LABS: Urine Bacteria None Seen /hpf (None Seen)
[2025-02-21 03:10] LABS: INR 1.24 (0.9-1.15); Prothrombin Time 12.9 sec (9.3-11.8)
[2025-02-21] MEDS: IOHEXOL 350 MG/ML 100ML IJ ONE (03:12)
[2025-02-21] MEDS: FUROSEMIDE 40 MG/4 ML VIAL IV ONE (03:15)
[2025-02-21 03:20] LABS: Urine Blood 1+ /uL (Negative); Urine Clarity Clear (Clear); Urine Color Yellow (Yellow); Urine Mucus FEW (None Seen); Urine Protein, UAD 2+ (Negative); Urine Squamous Epithelial Cell FEW /hpf (<5); Urine Urobilinogen Normal (Negative); Urine WBC 9 /HPF (0-3); Urine pH 5.5 (5.0-9.0)
--- NOTE | 2025-02-21 04:04 | DVH ---
CTA Chest with intravenous contrast INDICATION: r/o PE COMPARISON: CTACH on DOS: 08/08/22, CT ANGIO CHEST CONTRAST on DOS: 08/08/22 TECHNIQUE: Multidetector spiral CTA of the chest was performed of the chest with intravenous contrast . PULMONARY ANGIOGRAPHY PROTOCOL was utilized using a bolus-tracking technique centered on the main p ulmonary artery. Axial, coronal and sagittal multiplanar and MIP reformats were performed. Radiation Dose : 1. Chest: CTDI volume is 5.92 mGy. Dose-length product is 1212.95 mGy*cm The dose indicators for CT are the volume Computed Tomography (CT) Dose Index (CTDIvol) and the Dose Length Product (DLP), and are measured in units of mGy and mGy-cm, respectively. These indicators are not patient dose, but values generated from the CT scanner acquisition factors. The report includes radiation exposure data for exposures received during this examination. Findings: Pulmonary artery: No pulmonary embolism. The main pulmonary artery measures 3.1 cm in the ascending aorta measures 4.3 cm. Atherosclerotic va scular calcifications are present as are cardiac pacing leads. It is noted once again that a cardiac pacing lead appears to extend into the right hepatic lobe via the right hepatic vein. This is unchang ed in position. Lower neck: Normal thyroid. Lungs: No focal consolidation, pleural effusion or pneumothorax. Moderate bibasilar atelectasis. Heart/Vascular Structures: The heart is mildly enlarged. No pericardial effusion. Lymph Nodes: No adenopathy Musculoskeletal: No acute osseous abnormality. Soft tissues: Normal. Upper abdomen: Multiple stable benign-appearing hepatic cysts and calcified gallstones. Limited porti ons of the upper abdomen are otherwise unremarkable. IMPRESSION: 1. No pulmonary embolism. 2. No acute thoracic finding. 3. Cardiomegaly. 4. Cardiac pacing leads with one lead redemonstrated extending via the right hepatic vein into the ri ght lobe of the liver. 5. Cholelithiasis.
--- NOTE | 2025-02-21 06:36 | ECG ---
[facility] Test Date: 2025-02-20 Test Time: 21:40:35 Pat Name: REHAN DE LEON Department: ED Room: 0280T B Gender: M Combination Welder Apprentice: : 1950 Requested By: CARLOS ENRIQUE YANES Order Number: [id number] Reading MD: Kvng Flor Measurements Intervals [place] Rate: 85 P: 24 OR: 181 QRS: -39 QRSD: 137 T: 116 QT: 399 QTc: 475 Interpretive Statements Sinus rhythm Ventricular premature complex Nonspecific IVCD with LAD Left ventricular hypertrophy Abnormal T, consider ischemia, lateral leads Electronically Signed On 02-23-2025 14:43:44 PDT by Kvng Flor Please click the below link to view image of tracing.
[2025-02-21 10:08] LABS: Lactic Acid w/Reflex 3.2 mmol/L (0.4-2.0)
[2025-02-21] MEDS: FUROSEMIDE 20 MG/2 ML VIAL IV SCH ×2 (11:27→17:52)
[2025-02-21] MEDS: FAMOTIDINE 20 MG TAB PO SCH (11:29)
[2025-02-21] MEDS: CLOPIDOGREL BISULFATE 75 MG TAB PO SCH (11:29)
[2025-02-21] MEDS: ASPirin-EC 81 mg tab PO SCH (11:29)
[2025-02-21] MEDS: METOPROLOL SUCCINATE XL 50 MG TAB PO SCH (11:30)
[2025-02-21] MEDS: ATORVASTATIN 20 MG TAB PO SCH (11:36)
[2025-02-21 13:39] LABS: Albumin 4.7 g/dL (3.2-4.8); Bilirubin, Direct 0.3 mg/dL (<0.3); Bilirubin, Total 0.8 mg/dL (0.2-1.0); Total Protein 8.2 g/dL (5.7-8.2)
--- NOTE | 2025-02-21 14:20 | DVH ---
INDICATION: liver disease TECHNIQUE: Multiple real-time sonographic images were obtained of the right upper quadrant. COMPARISON: None FINDINGS: The liver demonstrates homogenous echotexture without focal mass lesions. The liver measure s 17 cm. There is 0.6 intrahepatic or extrahepatic ductal dilatation. The common duct measures mm . 5 cm left hepatic lobe cyst. Gallstones are present. The gallbladder wall measures 0.2mm and is within normal limits. The right kidney measures 10 cm. The right kidney is normal in contour, size, and shape. The echog enicity is normal. There is no hydronephrosis. The pancreas is not well visualized due to overlying bowel gas. IMPRESSION: Cholelithiasis.
--- NOTE | 2025-02-21 16:01 | DVHSR ---
APPROVED REPORT EXAM: Two-dimensional and M-mode echocardiogram with Doppler and color Doppler. DIMENSIONS LVDd7.4 (3.8-5.7cm)LA (2D)4.6 (1.9-4.0cm)Aortic Root3.8 (2.0-3.7cm) LVDs6.4 (2.5-4.0cm)LA (MM) (1.9-4.0cm)Aortic Cusp Exc1.7 (1.5-2.0cm) EF (%) 27.0 (55-70%)Rt. Atrium4.8 (1.9-4.0cm)Asc. Aorta cm IVSd1.0 (0.7-1.1cm)RV (D) (1.8-2.4cm) Mitral Valve MitralMitral Stenosis E/A ratio0.02D MVAcm2 Aortic Valve Aortic ValveAortic Stenosis V10.59m/Aurora Mean GR.mmHg V21.21m/Aurora Peak GR.6mmHg LVOT Diameter2.7 (1.8-2.4cm)Doppler AVA2.79cm2 Other Information Quality : Technically LimitedRhythm : Technically limited study due to body habitus. Conclusion lvef 35% dysrhythmmia noted RV enlarged pacing lead in RV biatrial enlargement
[2025-02-21] MEDS: POTASSIUM CHLORIDE 8 MEQ TAB PO SCH (21:37)
--- NOTE | 2025-02-21 21:47 | DVHINCON2 ---
DATE OF CONSULTATION: 02/21/2025 REFERRING PHYSICIAN: ____. CONSULTING PHYSICIAN: Azeem Cervantes MD INDICATION: Shortness of breath. HISTORY OF PRESENT ILLNESS: The patient is a 74-year-old male with history of coronary artery disease, status post angioplasty; history of CHF, status post ICD implant; hypertension, stroke in the past. He presented to the hospital with complaints of worsening shortness of breath. He denied any lower extremity swelling as such. He has occasional on and off coughing, productive. He denied any chest pain. The patient has been on Lasix since admission with improvement in symptoms. PAST MEDICAL HISTORY: * CAD, status post angioplasty. Details not available. * Diabetes and hypertension. * CHF, status post ICD implant. MEDICATIONS: Per med rec. ALLERGIES: PENICILLIN. PHYSICAL EXAMINATION: GENERAL: Alert and awake, in no form of cardiopulmonary distress VITAL SIGNS: Blood pressure 131/85, pulse 75 per minute, saturation 95%. HEENT: No carotid bruits. No jugular venous distention. CHEST: Bilateral air entry and clear. CARDIOVASCULAR: Precordial and carotid pulses palpable. Normal S1, S2. EXTREMITIES: No peripheral edema. DIAGNOSTIC DATA: White count 12, hemoglobin 15, platelets is 240. Sodium 140, potassium 4.0, creatinine is 0.9, lactic acid elevated at 3.0. ASSESSMENT: * Decompensated heart failure. * Lactic acidosis, rule out sepsis. * History of CAD, status post angioplasty. * Status post ICD implant. * Diabetes. * Hypertension. RECOMMENDATIONS: * I agree with diuresis. * Continue IV Lasix. * Restrict salt and fluid intake. * Continue his empiric IV antibiotics. * Monitor electrolytes closely. * Continue aspirin and statin therapy. * Obtain echo. * Continue telemetry monitoring. Thank you for allowing me to participate in the care of this patient. MD SARAHY Lagos/PRADEEP/LATISHA TID: [id number] RECEIPT: [id number]
[2025-02-22] VITALS (9 sets, daily range): BP systolic 105–143; BP diastolic 74–88; PULSE 60–76; RESP 17–20; TEMP 97.4–97.9; O2SAT 90–96
[2025-02-22 07:04] LABS: Basophils # (auto) 0.1 10 ^3/uL (0-0.2); Basophils % (auto) 0.4 % (0.0-2.0); Eosinophils # (auto) 0.3 10 ^3/uL (0-0.8); Eosinophils % (auto) 1.7 % (0.0-7.0); Hematocrit 48.3 % (41.0-53.0); Hemoglobin 16.4 g/dL (13.5-17.5); Lymphocytes # (auto) 1.9 10 ^3/uL (0.4-5.4); Lymphocytes % (auto) 12.5 % (10.0-50.0); Mean Corpuscular Hemoglobin 30.7 pg (28.0-32.0); Mean Corpuscular Volume 90.2 fL (80.0-100.0); Monocytes % (auto) 6.6 % (0.0-12.0); Neutrophils % (auto) 78.8 % (37.0-80.0); Nucleated Red Blood Cells % 0.2 %; Platelet Count (auto) 262 10^3/uL (140-450); Red Blood Cells 5.35 10^6/uL (4.5-5.90); Red Cell Distribution Width 13.7 % (11.8-14.3); White Blood Cell 15.2 10^3/uL (4.4-10.8)
[2025-02-22] MEDS: METOPROLOL SUCCINATE XL 50 MG TAB PO SCH (10:06)
[2025-02-22] MEDS ORDERED: SPIR25TA8 PO (13:11)
[2025-02-22] MEDS ORDERED: FURO1TAB31 PO (13:11)
--- NOTE | 2025-02-22 13:12 | DVHDS2 ---
Discharge Summary Date of Admission Feb 21, 2025 at 02:41 Date of Discharge: Feb 22, 2025 Labs/Diagnostic Data: Laboratory Results Test 02/22/25 05:52 02/21/25 09:16 02/21/25 02:50 02/21/25 02:43 White Blood Count 15.2 10^3/uL (4.4-10.8) Red Blood Count 5.35 10^6/uL (4.5-5.90) Hemoglobin 16.4 g/dL (13.5-17.5) Hematocrit 48.3 % (41.0-53.0) Mean Corpuscular Volume 90.2 fL (80.0-100.0) Mean Corpuscular Hemoglobin 30.7 pg (28.0-32.0) Mean Corpuscular Hemoglobin Concent 34.0 g/dL (32.0-36.0) Red Cell Distribution Width 13.7 % (11.8-14.3) Platelet Count 262 10^3/uL (140-450) Mean Platelet Volume 8.4 fL (6.9-10.8) Neutrophils (%) (Auto) 78.8 % (37.0-80.0) Lymphocytes (%) (Auto) 12.5 % (10.0-50.0) Monocytes (%) (Auto) 6.6 % (0.0-12.0) Eosinophils (%) (Auto) 1.7 % (0.0-7.0) Basophils (%) (Auto) 0.4 % (0.0-2.0) Neutrophils # (Auto) 12.0 10 ^3/uL (1.6-8.6) Lymphocytes # (Auto) 1.9 10 ^3/uL (0.4-5.4) Monocytes # (Auto) 1.0 10 ^3/uL (0-1.3) Eosinophils # (Auto) 0.3 10 ^3/uL (0-0.8) Basophils # (Auto) 0.1 10 ^3/uL (0-0.2) Nucleated Red Blood Cells 0.2 % Lactic Acid Level 1.7 mmol/L (0.4-2.0) Total Bilirubin 0.8 mg/dL (0.2-1.0) Direct Bilirubin 0.3 mg/dL (<0.3) Aspartate Amino Transferase (AST) 14 U/L (13-40) Alanine Aminotransferase (ALT) 10 U/L (7-40) Alkaline Phosphatase 103 U/L (46-116) Total Protein 8.2 g/dL (5.7-8.2) Albumin 4.7 g/dL (3.2-4.8) Blood Gas Specimen Type Arterial Blood Gas Sample Site Right radial Blood Gas Patient Temperature 37.0 Arterial Blood Date Drawn [id number] Arterial Blood pH 7.372 (7.350-7.450) Arterial Blood Partial Pressure CO2 34.3 mmHg (35.0-48.0) Arterial Blood Partial Pressure O2 82.5 mmHg (83.0-108.0) Arterial Blood HCO3 19.5 mmol/L (21.0-28.0) Arterial Blood Oxygen Saturation 96.2 % (94.0-98.0) Arterial Blood Base Excess -4.7 mmol/L (-2.0-3.0) Arterial Blood Oxyhemoglobin 95.0 % (94.0-98.0) Arterial Blood Carboxyhemoglobin 0.6 % (0.5-1.5) Arterial Blood Methemoglobin 0.6 % (0.0-1.5) Zev Test Yes Blood Gas Total Hemoglobin 16.90 g/dL (13.5-17.5) Blood Gas Liter Flow 4.00 Blood Gas Modality Nasal cannula FiO2 % 36.0 Prothrombin Time 12.9 sec (9.3-11.8) Prothrombin Time INR 1.24 (0.9-1.15) Test 02/21/25 02:40 02/20/25 23:44 02/20/25 22:39 02/20/25 22:31 Urine Color Yellow (Yellow) Urine Clarity Clear (Clear) Urine pH 5.5 (5.0-9.0) Urine Specific [place] 1.030 (1.001-1.035) Urine Protein 2+ (Negative) Urine Ketones Negative (Negative) Urine Blood 1+ /uL (Negative) Urine Nitrite Negative (Negative) Urine Bilirubin Negative (Negative) Urine Urobilinogen Normal mg/dL (Negative) Urine Leukocyte Esterase Negative /uL (Negative) Urine RBC 1 /hpf (0 - 3) Urine Microscopic WBC 9 /HPF (0-3) Urine Squamous Epithelial Cells Few /hpf (<5) Urine Bacteria None seen /hpf (None Seen) Urine Mucus Few (None Seen) Urine Glucose Trace mg/dL (Normal) Troponin I High Sensitivity 12 ng/L (</=54) D-Dimer, Quantitative 0.52 mg/L FEU (0.0-0.49) Sodium Level 140 mmol/L (136-145) Potassium Level 4.0 mmol/L (3.5-5.1) Chloride Level 107 mmol/L (98-107) Carbon Dioxide Level 23 mmol/L (20-31) Anion Gap 10 (5-15) Blood Urea Nitrogen 13 mg/dL (9-23) Creatinine 0.92 mg/dL (0.700-1.30) Glomerular Filtration Rate Calc 87 mL/min (>90) BUN/Creatinine Ratio 14.1 (10.0-20.0) Serum Glucose 138 mg/dL (74-106) Calcium Level 9.6 mg/dL (8.7-10.4) B-Type Natriuretic Peptide 404.55 pg/mL (0-100) Influenza Type A Antigen Negative (Negative) Influenza Type B Antigen Negative (Negative) SARS-CoV-2 Antigen (Rapid) Negative (NEGATIVE) Other Laboratory Tests 02/22/25 05:52 02/20/25 22:39 Brief Hx & Hospital Course: Mr. Kolton Rivero is a 74 year old male with a history of angina, CAD, CHF, CVA, DM, HLD, HTN, MA s/p PTCA and pacemaker, thyroid TIA who presents with a chief complaint of throat pain and shortness of breath. Patient reports on gradual onset of symptoms, that began, initially, with throat pain. Patient reports dyspnea at rest denies chest pain, dizziness, fevers, chills. Patient with a d dimer of 0.52, BNP 404, lactate levels 2.8, 3.0. Chest x ray per radiologists with no acute disease. Patient denies any home oxygen use. Patient admitted for further evaluation and treatment. He is admitted and treated for his shortness for breath symptoms felt secondary to heart failure. Patient received IV diuretics. He is evaluated by plastic tile setter. Patient had an echocardiogram showed EF 35%. Patient counseled and educated regarding heart failure and wall fluid restriction at home as well as compliance with the diuretics. Otherwise patient's symptoms resolved. He is feeling better. Stable. Therefore it is felt he could be safely discharged home. I have talked with the patient regarding his hospital diagnosis, treatment he received, discharge medications, discharge instructions and follow- up plan of care. He has verbalized understanding of these and agree with the care plan as outlined. Operations or Procedures APPROVED REPORT EXAM: Two-dimensional and M-mode echocardiogram with Doppler and color Doppler. DIMENSIONS LVDd 7.4 (3.8-5.7cm) LA (2D) 4.6 (1.9-4.0cm) Aortic Root 3.8 (2.0- 3.7cm) LVDs 6.4 (2.5-4.0cm) LA (MM) (1.9-4.0cm) Aortic Cusp Exc 1.7 (1.5- 2.0cm) EF (%) 27.0 (55-70%) Rt. Atrium 4.8 (1.9-4.0cm) Asc. Aorta cm IVSd 1.0 (0.7-1.1cm) RV (D) (1.8-2.4cm) Mitral Valve Mitral Mitral Stenosis E/A ratio 0.0 2D MVA cm2 Aortic Valve Aortic Valve Aortic Stenosis V1 0.59m/s AO Mean GR. mmHg V2 1.21m/s AO Peak GR. 6mmHg LVOT Diameter 2.7 (1.8-2.4cm) Doppler JC 2.79cm2 Other Information Quality : Technically Limited Rhythm : Technically limited study due to body habitus. Conclusion lvef 35% dysrhythmmia noted RV enlarged pacing lead in RV biatrial enlargement SIGNED BY: MOISE CLAY MD SIGNED DATE/TIME: 02/21/25 1601 Condition at Discharge: Stable Final Diagnosis/Problems List Acute on chronic congestive heart failure with a diastolic dysfunction, congestive cardiomyopathy, COPD Discharge Disposition: Home Discharge Instruct/Medications Diet: Consistent carbohydrate, Cardiac 2g Na,low cholest Diet comment: Limit your oral fluid intake to 1200 mL per 24 hour Activity: No Restrictions, As Tolerated Follow Up/Referral: Your primary care doctor in two weeks and heart doctor Dr. Clay 3-4 weeks for heart failure management Medications: As prescribed and home medications per discharge med reconciliation list New Medications: Furosemide (Lasix) 40 Mg Tab 40 MG PO DAILY, #60 TAB Continued Medications: Aspirin (Aspir-81) 81 Mg Tab 1 TAB PO DAILY, #30 TAB 5 Refills Clopidogrel Bisulfate (Plavix) 75 Mg Tab 75 MG PO, TAB Metoprolol Succinate (Toprol Xl) 50 Mg Tab 1 TAB PO DAILY, #30 TAB 5 Refills Simvastatin (Simvastatin) 20 Mg Tab 20 MG PO DAILY for 30 Days Spironolactone (Spironolactone) 25 Mg Tab 1 TAB PO DAILY, #90 TAB 1 Refill (This prescription has been renewed) Discharge Statement: "Patient was advised to return to the ER or call 911 if any headaches, dizziness, shortness of breath, chest pain, abdominal pain, bleeding, fevers, or worsening of medical condition. Patient was counseled about treatment plan, medications, possible side effects, patientverbalized understanding. All questions were answered to the best of my ability. This discharge took greater then 30 minutes in planning, reviewing documentation, counseling the patient, and discussing with other team members." ASSESSMENT ASSESSMENT Assessment Acute on chronic congestive heart failure with a diastolic dysfunction, congestive cardiomyopathy, COPD ANGELICA MEHTA MD Feb 22, 2025 13:12
== END 2025-02-22 20:44 | disposition home or self-care (01) | DRG 871 ==
LOC: EDBD 21:29 → ER 21:29 → OVERFLOW 02-21 02:41 → TELE-WESTW 02-21 05:10
PROVIDERS: ADMIT Nurse Practitioner Family; ATTEND Nurse Practitioner Family
DX: A41.9 Sepsis, unspecified organism (principal); I50.33 Acute on chronic diastolic (congestive) heart failure; J96.01 Acute respiratory failure with hypoxia; I42.0 Dilated cardiomyopathy; I11.0 Hypertensive heart disease with heart failure; J02.9 Acute pharyngitis, unspecified; Z20.822 Contact with and (suspected) exposure to COVID-19; E03.9 Hypothyroidism, unspecified; E78.5 Hyperlipidemia, unspecified; I05.0 Rheumatic mitral stenosis; I25.10 Atherosclerotic heart disease of native coronary artery without angina pectoris; I35.0 Nonrheumatic aortic (valve) stenosis; Z88.0 Allergy status to penicillin; Z79.82 Long term (current) use of aspirin; Z79.899 Other long term (current) drug therapy; Z86.73 Personal history of transient ischemic attack (TIA), and cerebral infarction without residual deficits; Z87.891 Personal history of nicotine dependence; Z95.810 Presence of automatic (implantable) cardiac defibrillator; Z98.61 Coronary angioplasty status
CPT/HCPCS: 36415; 36600; 71045; 71275; 76705; 80048; 80076; 81001; 82805; 83605; 83880; 84484; 85025; 85379; 85610; 87040; 87426; 87804; 93005; 93306; 94640; 96374; 99291; G0378